=== PATIENT | female | born 1995 | race American Indian/Alaskan Native ===

== ENCOUNTER 2017-08-14 09:14 | Emergency (ER) | payer SELFPAY ==
[2017-08-14 10:34] LABS: Hematocrit 36.6 % (30.3-42.9); Hemoglobin 11.9 gm/dl (10.1-14.3); Mean Corpuscular HGB Conc 32 % (30-34); Mean Corpuscular Hemoglobin 28 pg (28-32); Mean Corpuscular Volume 86 fl (79-97); Platelet Count 234 K/mm3 (140-440); Red Blood Count 4.28 M/mm3 (3.65-5.03); Red Cell Distribution Width 16.8 % (13.2-15.2)
[2017-08-14 10:48] LABS: Alanine Aminotransferase 8 units/L (7-56); Albumin 4.3 g/dL (3.9-5); BUN/Creatinine Ratio 13; Blood Urea Nitrogen 9 mg/dL (7-17); Hemolysis Index 2
[2017-08-14] MEDS ORDERED: MORPHINE IV ONE (11:11)
[2017-08-14] MEDS ORDERED: TORADOL IV ONE (11:11)
[2017-08-14] MEDS ORDERED: ZOFRAN IV ONE (11:11)
[2017-08-14] MEDS ORDERED: NACL 0.9% 1000 ML 1,000 ML IV ONE (11:11)
--- NOTE | 2017-08-14 11:13 | Emergency Department Report ---
ED Abdominal Pain HPI - General Chief Complaint: Nausea/Vomiting/Diarrhea Stated Complaint: NAUSEA/VOMITING Time Seen by Provider: 08/14/17 11:03 Source: patient, family Mode of arrival: Ambulatory Limitations: No Limitations - History of Present Illness Initial Comments: Patient brought in by her parents and patient reports she's been having nausea vomiting diarrhea with abdominal pain to her pelvic area pointing to the right side of her abdomen. She said her pain is 10 out of 10 and crampy. Patient started her period today and this started today. Patient is crunched up and appears to be in pain she is crying. She says she's had multiple episodes of diarrhea and vomiting today. She reports feeling chills but does know she has fever. Mom reports the patient doesn't have any medical problem but she is had this in the past where when she starts her menses she gets severe cramping.. Patient denies any back pain, urinary burning, frequency but report urgency. Denies any blood in her urine. She said she ate chicken before she went to bed last night and when she woke up this morning she started feeling sick and abdominal cramping. Noted. Started when she woke up this morning. Pain is constant. No medication taken for nausea vomiting, diarrhea or for pain. Denies any drug use including marijuana MD Complaint: abdominal pain, other (NVD) -: This morning Location: suprapubic (right) Radiation: none Migration to: no migration Severity: severe Severity scale (0 -10): 10 Quality: cramping Consistency: constant Improves With: nothing Worsens With: movement, other (palpation) Context: other (unknown but she started her period this morning.) Associated Symptoms: nausea, vomiting, diarrhea, other (urine urgency). denies : fever, chills, constipation, dysuria, hematemesis, hematochezia, melena, hematuria, anorexia, syncope Treatments Prior to Arrival: other (none) - Related Data LMP Date: 08/14/17 Previous Rx's Medication Instructions Recorded Last Taken Type Cephalexin [Keflex] 500 mg PO Q12HR 7 Days #14 cap 08/14/17 Unknown Rx Naproxen 500 mg PO Q8H PRN #12 tablet 08/14/17 Unknown Rx Ondansetron [Zofran Odt] 4 mg PO Q8H PRN #12 tab.rapdis 08/14/17 Unknown Rx Allergies Allergy/AdvReac Type Severity Reaction Status Date / Time No Known Allergies Allergy Unverified 04/09/15 21:18 ED Review of Systems ROS: Stated complaint: NAUSEA/VOMITING Other details as noted in HPI Constitutional: chills. denies: fever Eyes: denies: eye pain, eye discharge, vision change ENT: denies: ear pain, throat pain, congestion Respiratory: denies: cough, shortness of breath, SOB with exertion, SOB at rest , stridor, wheezing Cardiovascular: denies: chest pain, palpitations, edema, syncope Gastrointestinal: abdominal pain, nausea, vomiting, diarrhea. denies: constipation, hematemesis, melena, hematochezia Genitourinary: urgency. denies: dysuria, frequency, hematuria, discharge, abnormal menses, dyspareunia Musculoskeletal: denies: back pain, joint swelling, arthralgia, myalgia Skin: denies: rash, lesions Neurological: denies: headache, weakness, numbness, paresthesias, confusion, abnormal gait, vertigo Psychiatric: depression ED Past Medical Hx - Past Medical History Previous Medical History?: Yes Additional medical history: scoliosis. Dysmenorrhea - Surgical History Past Surgical History?: No - Family History Family history: hypertension - Social History Smoking Status: Never Smoker Substance Use Type: None Other Social History: Single and lives with mom - Medications Home Medications: Home Medications Medication Instructions Recorded Confirmed Last Taken Type Cephalexin [Keflex] 500 mg PO Q12HR 7 Days #14 cap 08/14/17 Unknown Rx Naproxen 500 mg PO Q8H PRN #12 tablet 08/14/17 Unknown Rx Ondansetron [Zofran Odt] 4 mg PO Q8H PRN #12 tab.rapdis 08/14/17 Unknown Rx ED Physical Exam - General Limitations: No Limitations General appearance: alert, in no apparent distress - Head Head exam: Present: atraumatic, normocephalic, normal inspection - Eye Eye exam: Present: normal appearance, PERRL, EOMI. Absent: periorbital swelling , periorbital tenderness Pupils: Present: normal accommodation - ENT ENT exam: Present: normal exam, normal orophraynx, mucous membranes moist, TM's normal bilaterally, normal external ear exam - Neck Neck exam: Present: normal inspection, full ROM, other (no C-spine tenderness). Absent: meningismus, lymphadenopathy - Respiratory Respiratory exam: Present: normal lung sounds bilaterally. Absent: respiratory distress, chest wall tenderness - Cardiovascular Cardiovascular Exam: Present: regular rate, normal rhythm, normal heart sounds, gallop. Absent: systolic murmur, diastolic murmur - GI/Abdominal GI/Abdominal exam: Present: soft, tenderness (right pelvic), normal bowel sounds. Absent: distended, guarding, rebound, rigid, organomegaly, mass, bruit , pulsatile mass, hernia - Extremities Exam Extremities exam: Present: normal inspection, full ROM, normal capillary refill , other (no clubbing, cyanosis or edema. Positive pulses all extremities and no neurovascular compromise). Absent: tenderness, pedal edema, joint swelling, calf tenderness - Back Exam Back exam: Present: normal inspection, full ROM, other (ambulates without any difficulties). Absent: tenderness, CVA tenderness (R), CVA tenderness (L), muscle spasm, paraspinal tenderness, vertebral tenderness, rash noted - Neurological Exam Neurological exam: Present: alert, oriented X3 - Psychiatric Psychiatric exam: Present: normal affect, normal mood - Skin Skin exam: Present: warm, dry, intact, normal color. Absent: rash ED Course Vital Signs 08/14/17 08/14/17 08/14/17 09:27 11:35 11:36 Temperature 99.3 F Pulse Rate 84 Respiratory 20 18 18 Rate Blood Pressure 117/74 Blood Pressure [Right] O2 Sat by Pulse 100 Oximetry 08/14/17 08/14/17 12:06 14:44 Temperature 99.4 F Pulse Rate 82 Respiratory 18 18 Rate Blood Pressure Blood Pressure 107/63 [Right] O2 Sat by Pulse 99 Oximetry - Reevaluation(s) Reevaluation #1: 08/14/17 12:55 Patient given Toradol 30 mg IV, morphine 2 mg IV, Zofran 4 mg IV and 1 L of normal saline. She is a UTI and has just started her menses today. Pain is better. Abdomen is nontender to palpate. Awaiting CT scan results. Reevaluation #2: 08/14/17 14:01 Patient pain is better and she says she is feeling better. No episode of diarrhea or vomiting in the emergency room. Sheet tolerating by mouth liquids well. Right pelvic area still with tenderness and CT scan of the abdomen and pelvis shows no abnormal finding except for adnexal cyst. Urinalysis positive UTI, positive ketones, chemistry with mild decrease in sodium. CBC stable. Negative . She is still mild tenderness to right pelvic area but she reports that it was worse when she first came in. ED Medical Decision Making - Lab Data Result diagrams: 08/14/17 09:53 08/14/17 09:53 Lab Results 08/14/17 08/14/17 08/14/17 Range/Units 09:52 09:53 09:53 WBC 9.1 (4.5-11.0) K/mm3 RBC 4.28 (3.65-5.03) M/mm3 Hgb 11.9 (10.1-14.3) gm/dl Hct 36.6 (30.3-42.9) % MCV 86 (79-97) fl MCH 28 (28-32) pg MCHC 32 (30-34) % RDW 16.8 H (13.2-15.2) % Plt Count 234 (140-440) K/mm3 Add Manual Diff Complete Total Counted 100 Seg Neutrophils % Kiss Setter Hand Seg Neuts % (Manual) 95.0 H (40.0-70.0) % Band Neutrophils % 0 % Lymphocytes % (Manual) 4.0 L (13.4-35.0) % Reactive Lymphs % (Man) 0 % Monocytes % (Manual) 1.0 (0.0-7.3) % Eosinophils % (Manual) 0 (0.0-4.3) % Basophils % (Manual) 0 (0.0-1.8) % Metamyelocytes % 0 % Myelocytes % 0 % Promyelocytes % 0 % Blast Cells % 0 % Nucleated RBC % Not Reportable Seg Neutrophils # Man 8.6 H (1.8-7.7) K/mm3 Band Neutrophils # 0.0 K/mm3 Lymphocytes # (Manual) 0.4 L (1.2-5.4) K/mm3 Abs React Lymphs (Man) 0.0 K/mm3 Monocytes # (Manual) 0.1 (0.0-0.8) K/mm3 Eosinophils # (Manual) 0.0 (0.0-0.4) K/mm3 Basophils # (Manual) 0.0 (0.0-0.1) K/mm3 Metamyelocytes # 0.0 K/mm3 Myelocytes # 0.0 K/mm3 Promyelocytes # 0.0 K/mm3 Blast Cells # 0.0 K/mm3 WBC Morphology Not Reportable Hypersegmented Neuts Not Reportable Hyposegmented Neuts Not Reportable Hypogranular Neuts Not Reportable Smudge Cells Not Reportable Toxic Granulation Not Reportable Toxic Vacuolation Not Reportable Dohle Bodies Not Reportable Pelger-Huet Anomaly Not Reportable Ariana Rods Not Reportable Platelet Estimate Consistent w auto Clumped Platelets Not Reportable Plt Clumps, EDTA Not Reportable Large Platelets Not Reportable Giant Platelets Not Reportable Platelet Satelliting Not Reportable Plt Morphology Comment Not Reportable RBC Morphology Normal Dimorphic RBCs Not Reportable Polychromasia Not Reportable Hypochromasia Not Reportable Poikilocytosis Not Reportable Anisocytosis Not Reportable Microcytosis Not Reportable Macrocytosis Not Reportable Spherocytes Not Reportable Pappenheimer Bodies Not Reportable Sickle Cells Not Reportable Target Cells Not Reportable Tear Drop Cells Not Reportable Ovalocytes Not Reportable Helmet Cells Not Reportable [place] Bodies Not Reportable [place] Rings Not Reportable Daniel Cells Not Reportable Bite Cells Not Reportable Crenated Cell Not Reportable Elliptocytes Not Reportable Acanthocytes (Spur) Not Reportable Rouleaux Not Reportable Hemoglobin C Crystals Not Reportable Schistocytes Not Reportable Malaria parasites Not Reportable Ervin Bodies Not Reportable Hem Pathologist Commnt No Sodium 137 (137-145) mmol/L Potassium 3.6 (3.6-5.0) mmol/L Chloride 105.4 (98-107) mmol/L Carbon Dioxide 21 L (22-30) mmol/L Anion Gap 14 mmol/L BUN 9 (7-17) mg/dL Creatinine 0.7 (0.7-1.2) mg/dL Estimated GFR > 60 ml/min BUN/Creatinine Ratio 13 % Glucose 131 H (65-100) mg/dL Calcium 9.0 (8.4-10.2) mg/dL Total Bilirubin 0.30 (0.1-1.2) mg/dL AST 17 (5-40) units/L ALT 8 (7-56) units/L Alkaline Phosphatase 47 (35-129) units/L Total Protein 7.5 (6.3-8.2) g/dL Albumin 4.3 (3.9-5) g/dL Albumin/Globulin Ratio 1.3 % Lipase 22 (13-60) units/L HCG, Qual (Negative) Urine Color (Yellow) Urine Turbidity (Clear) Urine pH (5.0-7.0) Ur Specific [place] (1.003-1.030) Urine Protein (Negative) mg/dL Urine Glucose (UA) (Negative) mg/dL Urine Ketones (Negative) mg/dL Urine Blood (Negative) Urine Nitrite (Negative) Urine Bilirubin (Negative) Urine Urobilinogen (<2.0) mg/dL Ur Leukocyte Esterase (Negative) Urine WBC (Auto) (0.0-6.0) /HPF Urine RBC (Auto) (0.0-6.0) /HPF U Epithel Cells (Auto) (0-13.0) /HPF Urine Mucus /HPF 08/14/17 08/14/17 Range/Units 11:26 11:41 WBC (4.5-11.0) K/mm3 RBC (3.65-5.03) M/mm3 Hgb (10.1-14.3) gm/dl Hct (30.3-42.9) % MCV (79-97) fl MCH (28-32) pg MCHC (30-34) % RDW (13.2-15.2) % Plt Count (140-440) K/mm3 Add Manual Diff Total Counted Seg Neutrophils % Seg Neuts % (Manual) (40.0-70.0) % Band Neutrophils % % Lymphocytes % (Manual) (13.4-35.0) % Reactive Lymphs % (Man) % Monocytes % (Manual) (0.0-7.3) % Eosinophils % (Manual) (0.0-4.3) % Basophils % (Manual) (0.0-1.8) % Metamyelocytes % % Myelocytes % % Promyelocytes % % Blast Cells % % Nucleated RBC % Seg Neutrophils # Man (1.8-7.7) K/mm3 Band Neutrophils # K/mm3 Lymphocytes # (Manual) (1.2-5.4) K/mm3 Abs React Lymphs (Man) K/mm3 Monocytes # (Manual) (0.0-0.8) K/mm3 Eosinophils # (Manual) (0.0-0.4) K/mm3 Basophils # (Manual) (0.0-0.1) K/mm3 Metamyelocytes # K/mm3 Myelocytes # K/mm3 Promyelocytes # K/mm3 Blast Cells # K/mm3 WBC Morphology Hypersegmented Neuts Hyposegmented Neuts Hypogranular Neuts Smudge Cells Toxic Granulation Toxic Vacuolation Dohle Bodies Pelger-Huet Anomaly Ariana Rods Platelet Estimate Clumped Platelets Plt Clumps, EDTA Large Platelets Giant Platelets Platelet Satelliting Plt Morphology Comment RBC Morphology Dimorphic RBCs Polychromasia Hypochromasia Poikilocytosis Anisocytosis Microcytosis Macrocytosis Spherocytes Pappenheimer Bodies Sickle Cells Target Cells Tear Drop Cells Ovalocytes Helmet Cells [place] Bodies [place] Rings [place] Cells Bite Cells Crenated Cell Elliptocytes Acanthocytes (Spur) Rouleaux Hemoglobin C Crystals Schistocytes Malaria parasites Ervin Bodies Hem Pathologist Commnt Sodium (137-145) mmol/L Potassium (3.6-5.0) mmol/L Chloride (98-107) mmol/L Carbon Dioxide (22-30) mmol/L Anion Gap mmol/L BUN (7-17) mg/dL Creatinine (0.7-1.2) mg/dL Estimated GFR ml/min BUN/Creatinine Ratio % Glucose (65-100) mg/dL Calcium (8.4-10.2) mg/dL Total Bilirubin (0.1-1.2) mg/dL AST (5-40) units/L ALT (7-56) units/L Alkaline Phosphatase (35-129) units/L Total Protein (6.3-8.2) g/dL Albumin (3.9-5) g/dL Albumin/Globulin Ratio % Lipase (13-60) units/L HCG, Qual Negative (Negative) Urine Color Yellow (Yellow) Urine Turbidity Clear (Clear) Urine pH 9.0 H (5.0-7.0) Ur Specific [place] 1.025 (1.003-1.030) Urine Protein 100 mg/dl (Negative) mg/dL Urine Glucose (UA) Neg (Negative) mg/dL Urine Ketones Tr (Negative) mg/dL Urine Blood Mod (Negative) Urine Nitrite Neg (Negative) Urine Bilirubin Neg (Negative) Urine Urobilinogen < 2.0 (<2.0) mg/dL Ur Leukocyte Esterase Tr (Negative) Urine WBC (Auto) 12.0 H (0.0-6.0) /HPF Urine RBC (Auto) > 182.0 (0.0-6.0) /HPF U Epithel Cells (Auto) 3.0 (0-13.0) /HPF Urine Mucus 3+ /HPF Urine culture sent - Radiology Data Radiology results: report reviewed Ultrasound of the abdomen and pelvis with IV contrast normal except patient with right ovarian cyst. Please refer to radiology section for details on reported. Unable to get detail reports at present due to radiology system dysfunction. Radiologist called to inform that CT scan of the abdomen and pelvis normal except patient with right ovarian cyst and she is tender to palpate at right adnexa. Doctor Cosmo took report - Medical Decision Making ED Course DX: 1:Abdominal pain- resolved. Morphine 2mg iv, toradol 30 mg IV. will send home on naproxen. CT scan of abdomen and Pelvis with IV contrast normal except rt ovarian cyst. See radiology report for details CBC, CMP, Lipase stable. Neg . UA positive ketones and infection. See lab section for details 2: Rt ovarian Cyst- referred to [facility] for further eval 3: Dysmenorrhea on uti, - resolved.Referred to [facility] for further eval 4: UTI- Rocephin 1 gm im in ED and Keflex 500 mg po x 7 days. UA wit uti, CX sent 5:Mild dehydration- NS x 1 liter. PO challenge and tolerated 2 cups of juices without NVD 6: Nausea, Vomiting and Diarrhea-resolved. Zofran 4 mg iv in ed No diarrhea in ED. Will send home on Zofran Prescription for Zofran, Naproxen and Keflex, educated on meds referral to OBGYN F/U with PCP Educated on diagnosis CT scan results and labs explained to patient patient voiced understanding of discharge diagnosis, treatment plan, follow up. reports feeling better. Discharge from ed with family in stable condition - Differential Diagnosis appendicitis, ovarian cyst, colitis, gastroenteritis, UTI, Critical care attestation.: If time is entered above; I have spent that time in minutes in the direct care of this critically ill patient, excluding procedure time. ED Disposition Clinical Impression: Dysmenorrhea, Right ovarian cyst, Nausea vomiting and diarrhea, Acute cystitis with hematuria, Mild dehydration Abdominal pain Qualifiers: Abdominal location: right lower quadrant Qualified Code(s): R10.31 - Right lower quadrant pain Disposition: DC-01 TO HOME OR SELFCARE Is pt being admited?: No Does the pt Need Aspirin: No Condition: Stable Instructions: Dysmenorrhea (ED), Ovarian Cyst (ED), Dehydration (ED), Urinary Tract Infection in Women (ED), Acute Nausea and Vomiting (ED), Acute Diarrhea ( ED), Abdominal Pain (ED), Nutrition Tips for Relief of Diarrhea (ED) Additional Instructions: Please follow up with [facility] as instructed. See referral and call today for appointment Please follow up with primary care physician as discussed Take Zofran for nausea and vomiting Take naproxen for menstrual pain. increase fluid intake Prescriptions: Cephalexin [Keflex] 500 mg PO Q12HR 7 Days #14 cap Naproxen 500 mg PO Q8H PRN #12 tablet PRN Reason: abdominal cramping Ondansetron [Zofran Odt] 4 mg PO Q8H PRN #12 tab.rapdis PRN Reason: Nausea And Vomiting Referrals: PRIMARY CAREMD [Primary Care Provider] - 08/15/17 [facility] [Provider [facility]] - 08/19/17 Forms: Accompanied Note, Work/School Release Form(ED)
[2017-08-14] MEDS ORDERED: MORPHINE ONE ×2 (11:29)
[2017-08-14] MEDS ORDERED: NACL 0.9% 1000 ML 1,000 ML ONE ×2 (11:29)
[2017-08-14] MEDS ORDERED: TORADOL ONE ×2 (11:29)
[2017-08-14] MEDS ORDERED: ZOFRAN ONE ×2 (11:29)
[2017-08-14 11:53] LABS: Basophils % (Manual) 0 % (0.0-1.8); Eosinophils % (Manual) 0 % (0.0-4.3); RBC Morphology Normal; Total Cells Counted 100
[2017-08-14 11:54] LABS: Platelet Estimate Consistent w Auto
[2017-08-14 12:32] LABS: Bilirubin,Urine NEG (Negative); Blood,Urine MOD (Negative); Color,Urine Yellow (Yellow); Mucus,Urine 3+ /HPF; Urobilinogen,Urine < 2.0 mg/dL (<2.0)
[2017-08-14 12:34] LABS: RBC,Urine > 182.0 /HPF (0.0-6.0)
[2017-08-14] MEDS ORDERED: XYLOCAINE 1% MPF 5 mL INFILTRATI ONE (13:45)
[2017-08-14] MEDS ORDERED: ROCEPHIN IM STA (13:45)
[2017-08-14] MEDS ORDERED: ROCEPHIN IM ONE ×2 (14:27)
[2017-08-14] MEDS ORDERED: XYLOCAINE 1% MPF 5 mL ONE ×2 (14:28)
[2017-08-14 14:45] VITALS: BP 107/63
== END 2017-08-14 15:07 | disposition home or self-care (01) ==
LOC: ED 09:14
DX: N83.201 Unspecified ovarian cyst, right side (principal); N30.01 Acute cystitis with hematuria; E86.0 Dehydration
CPT/HCPCS: 36415; 74177; 80053; 81001; 83690; 84703; 85007; 85025; 87086; 96361; 96372; 96374; 96375; 99283; J0696; J1885; J2270; J2405; J7030; Q9967

== ENCOUNTER 2018-05-07 23:32 | Emergency (ER) | payer SELFPAY ==
[2018-05-07 23:59] VITALS: BP 117/78
[2018-05-08] MEDS ORDERED: IBUPROFEN PO ONE (01:10)
[2018-05-08] MEDS ORDERED: LIDOCAINE VISCOUS 2% PO ONE (01:10)
[2018-05-08] MEDS ORDERED: BICILLIN L-A IM ONE (01:10)
--- NOTE | 2018-05-08 01:18 | Emergency Department Report ---
ED ENT HPI - General Chief complaint: Sore Throat Stated complaint: URI SX Time Seen by Provider: 05/08/18 00:37 Source: patient Mode of arrival: Ambulatory Limitations: No Limitations - History of Present Illness Initial comments: This is a 22-year-old female nontoxic, well nourished in appearance, no acute signs of distress presents to the ED with c/o of sore throat. Patient describes sore throat as swallowing razer blades. Patient denies any fever, chills, headache, stiff neck, nausea, vomiting, chest pain, shortness of breath, numbness or tingling. Patient denies any drooling or hoarseness. Patient denies any allergies or significant past medical history. MD complaint: sore throat -: days(s) (4) Location: throat Severity: mild Severity scale (0 -10): 8 Quality: aching Consistency: constant Improves with: none Worsens with: swallowing Associated Symptoms: pain with swallowing, sore throat. denies: fever, cough, gum swelling, toothache, tinnitus, hearing loss, discharge from ear, rhinorrhea - Related Data Previous Rx's Medication Instructions Recorded Last Taken Type Naproxen 500 mg PO Q8H PRN #12 tablet 08/14/17 Unknown Rx Ondansetron [Zofran Odt] 4 mg PO Q8H PRN #12 tab.rapdis 08/14/17 Unknown Rx cephALEXin [Keflex] 500 mg PO Q12HR 7 Days #14 cap 08/14/17 Unknown Rx Ibuprofen [Motrin] 600 mg PO Q8H PRN #20 tablet 05/08/18 Unknown Rx Nystas/Diphen/Xyl Visc/Mylanta 15 ml MM Q6H PRN 5 Days ml 05/08/18 Unknown Rx [Magic Mouthwash] Allergies Allergy/AdvReac Type Severity Reaction Status Date / Time No Known Allergies Allergy Unverified 04/09/15 21:18 ED Dental HPI - General Chief complaint: Sore Throat Stated complaint: URI SX Time Seen by Provider: 05/08/18 00:37 Source: patient Mode of arrival: Ambulatory Limitations: No Limitations - Related Data Previous Rx's Medication Instructions Recorded Last Taken Type Naproxen 500 mg PO Q8H PRN #12 tablet 08/14/17 Unknown Rx Ondansetron [Zofran Odt] 4 mg PO Q8H PRN #12 tab.rapdis 08/14/17 Unknown Rx cephALEXin [Keflex] 500 mg PO Q12HR 7 Days #14 cap 08/14/17 Unknown Rx Ibuprofen [Motrin] 600 mg PO Q8H PRN #20 tablet 05/08/18 Unknown Rx Nystas/Diphen/Xyl Visc/Mylanta 15 ml MM Q6H PRN 5 Days ml 05/08/18 Unknown Rx [Magic Mouthwash] Allergies Allergy/AdvReac Type Severity Reaction Status Date / Time No Known Allergies Allergy Unverified 04/09/15 21:18 ED Review of Systems ROS: Stated complaint: URI SX Other details as noted in HPI Constitutional: denies: chills, fever Eyes: denies: eye pain, eye discharge, vision change ENT: denies: ear pain, throat pain Respiratory: denies: cough, shortness of breath, wheezing Cardiovascular: denies: chest pain, palpitations Endocrine: no symptoms reported Gastrointestinal: denies: abdominal pain, nausea, diarrhea Genitourinary: denies: urgency, dysuria, discharge Musculoskeletal: denies: back pain, joint swelling, arthralgia Skin: denies: rash, lesions Neurological: denies: headache, weakness, paresthesias Psychiatric: denies: anxiety, depression Hematological/Lymphatic: denies: easy bleeding, easy bruising ED Past Medical Hx - Past Medical History Previous Medical History?: Yes Additional medical history: scoliosis. Dysmenorrhea - Surgical History Past Surgical History?: No - Social History Smoking Status: Former Smoker Substance Use Type: Marijuana - Medications Home Medications: Home Medications Medication Instructions Recorded Confirmed Last Taken Type Naproxen 500 mg PO Q8H PRN #12 tablet 08/14/17 Unknown Rx Ondansetron [Zofran Odt] 4 mg PO Q8H PRN #12 tab.rapdis 08/14/17 Unknown Rx cephALEXin [Keflex] 500 mg PO Q12HR 7 Days #14 cap 08/14/17 Unknown Rx Ibuprofen [Motrin] 600 mg PO Q8H PRN #20 tablet 05/08/18 Unknown Rx Nystas/Diphen/Xyl Visc/Mylanta 15 ml MM Q6H PRN 5 Days ml 05/08/18 Unknown Rx [Magic Mouthwash] ED Physical Exam - General Limitations: No Limitations General appearance: alert, in no apparent distress - Head Head exam: Present: atraumatic, normocephalic - Eye Eye exam: Present: normal appearance - Expanded ENT Exam Expanded Ear exam: Present: normal external inspection Mouth exam: Present: normal external inspection. Absent: drooling, trismus, muffled voice Throat exam: Positive: tonsillar erythema, tonsillomegaly (2+), tonsillar exudate, other (uvula midline.). Negative: R peritonsillar mass, L peritonsillar mass - Neck Neck exam: Present: normal inspection, full ROM, lymphadenopathy (bilateral tonsillar). Absent: tenderness, meningismus - Neurological Exam Neurological exam: Present: alert, oriented X3 - Psychiatric Psychiatric exam: Present: normal affect, normal mood - Skin Skin exam: Present: warm, dry, intact, normal color. Absent: rash ED Course Vital Signs 05/07/18 23:58 Temperature 98.9 F Pulse Rate 102 H Respiratory 16 Rate Blood Pressure 117/78 O2 Sat by Pulse 97 Oximetry - Reevaluation(s) Reevaluation #1: 05/08/18 01:16 Patient is speaking in full sentences with no signs of distress noted. ED Medical Decision Making - Medical Decision Making This is a 22-year-old female that presents with tonsillitis. Patient is stable was examined by me. There is no drooling. No tonsillar abscess noted. Uvula is midline. Patient received Bicillin IM in the ED. Vital signs are stable. Patient is not febrile and normal heart rate. Patient was instructed to Follow-up with a primary care doctor in 3-5 days or if symptoms worsen and continue return to emergency room as soon as possible. At time of discharge, the patient does not seem toxic or ill in appearance. No acute signs of distress noted. Patient agrees to discharge treatment plan of care. No further questions noted by the patient. Critical care attestation.: If time is entered above; I have spent that time in minutes in the direct care of this critically ill patient, excluding procedure time. ED Disposition Clinical Impression: Tonsillitis with exudate Pharyngitis Qualifiers: Pharyngitis/tonsillitis etiology: unspecified etiology Qualified Code(s): J02.9 - Acute pharyngitis, unspecified Disposition: TO HOME OR SELFCARE Is pt being admited?: No Does the pt Need Aspirin: No Condition: Stable Instructions: Tonsillitis (ED), Pharyngitis (ED) Additional Instructions: Follow-up with a primary care doctor in 3-5 days or if symptoms worsen and continue return to emergency room as soon as possible. Prescriptions: Ibuprofen [Motrin] 600 mg PO Q8H PRN #20 tablet PRN Reason: Pain Nystas/Diphen/Xyl Visc/Mylanta [Magic Mouthwash] 15 ml MM Q6H PRN 5 Days ml PRN Reason: Sore Throat Referrals: [facility] MD ABBE [Primary Care Provider] - 3-5 Days PRIMARY CAR[facility] [Referring] - 3-5 Days EVERARDO MILLER MD [Staff Physician] - 3-5 Days [facility] [Outside] - 3-5 Days [facility] [Outside] - 3-5 Days Forms: Work/School Release Form(ED)
== END 2018-05-08 02:30 | disposition home or self-care (01) ==
LOC: ED 23:32
DX: J03.90 Acute tonsillitis, unspecified (principal); J02.9 Acute pharyngitis, unspecified; F12.10 Cannabis abuse, uncomplicated; Z87.891 Personal history of nicotine dependence
CPT/HCPCS: 87430; 96372; 99283; J0561

== ENCOUNTER 2018-10-12 13:04 | Emergency (ER) | payer SELFPAY ==
--- NOTE | 2018-10-12 13:15 | Emergency Department Report ---
Blank Doc - Documentation Documentation: This is a 22-year-old female that presents with abdominal pain. This initial assessment/diagnostic orders/clinical plan/treatment(s) is/are subject to change based on patient's health status, clinical progression and re- assessment by fellow clinical providers in the ED. Further treatment and workup at subsequent clinical providers discretion. Patient/guardians urged not to elope from the ED as their condition may be serious if not clinically assessed and managed. Initial orders include: 1- Patient sent to [facility] for further evaluation and treatment 2- labs 3- UA
[2018-10-12] MEDS ORDERED: MORPHINE IV ONE ×2 (13:16→14:35)
[2018-10-12] MEDS ORDERED: NACL 0.9% 1000 ML 1,000 ML IV ONE (13:16)
[2018-10-12] MEDS ORDERED: ZOFRAN IV ONE ×2 (13:16→14:35)
[2018-10-12 13:52] LABS: Basophils % (Auto) 0.3 % (0.0-1.8); Eosinophils % (Auto) 0.1 % (0.0-4.3); Hematocrit 37.5 % (30.3-42.9); Hemoglobin 12.4 gm/dl (10.1-14.3); Lymphocytes # (Auto) 0.7 K/mm3 (1.2-5.4); Mean Corpuscular HGB Conc 33 % (30-34); Mean Corpuscular Volume 88 fl (79-97); Monocytes # (Auto) 0.4 K/mm3 (0.0-0.8); Monocytes % (Auto) 3.9 % (0.0-7.3); Platelet Count 214 K/mm3 (140-440); Red Blood Count 4.26 M/mm3 (3.65-5.03); Red Cell Distribution Width 15.3 % (13.2-15.2)
[2018-10-12 14:16] LABS: Alanine Aminotransferase 8 units/L (7-56); Albumin 4.4 g/dL (3.9-5); BUN/Creatinine Ratio 13; Blood Urea Nitrogen 9 mg/dL (7-17); Hemolysis Index 10
--- NOTE | 2018-10-12 14:58 | Emergency Department Report ---
<AZIZA HOPKINS - Last Filed: 10/12/18 14:57> ED General Adult HPI - General Chief complaint: Abdominal Pain Stated complaint: STOMACH PAIN SEVERE Time Seen by Provider: 10/12/18 13:16 Source: patient, family Mode of arrival: Wheelchair Limitations: No Limitations - History of Present Illness Initial comments: The patient presents to the emergency department with a chief complaint of lower abdominal pain that started this morning. Patient also complains of nausea, vomiting, diarrhea. Patient is unaware of any sick contacts. -: Sudden Location: abdomen Radiation: non-radiation Severity scale (0 -10): 8 Quality: sharp Consistency: constant Improves with: none Worsens with: none Associated Symptoms: nausea/vomiting Treatments Prior to Arrival: none - Related Data Previous Rx's Medication Instructions Recorded Last Taken Type Naproxen 500 mg PO Q8H PRN #12 tablet 08/14/17 Unknown Rx Ondansetron [Zofran Odt] 4 mg PO Q8H PRN #12 tab.rapdis 08/14/17 Unknown Rx cephALEXin [Keflex] 500 mg PO Q12HR 7 Days #14 cap 08/14/17 Unknown Rx Ibuprofen [Motrin] 600 mg PO Q8H PRN #20 tablet 05/08/18 Unknown Rx Nystas/Diphen/Xyl Visc/Mylanta 15 ml MM Q6H PRN 5 Days ml 05/08/18 Unknown Rx [Magic Mouthwash] HYDROcodone/APAP 5-325 [[place] 1 each PO Q6HR PRN #12 tablet 10/12/18 Unknown Rx 5/325] Ondansetron [Zofran Odt] 4 mg PO Q4HR PRN #20 tab.rapdis 10/12/18 Unknown Rx Allergies Allergy/AdvReac Type Severity Reaction Status Date / Time No Known Allergies Allergy Unverified 04/09/15 21:18 ED Review of Systems Comment: All other systems reviewed and negative Constitutional: denies: chills, fever Eyes: denies: eye pain, eye discharge, vision change ENT: denies: ear pain, throat pain Respiratory: denies: cough, shortness of breath, wheezing Cardiovascular: denies: chest pain, palpitations Endocrine: no symptoms reported Gastrointestinal: abdominal pain. denies: nausea, diarrhea Genitourinary: denies: urgency, dysuria, discharge Musculoskeletal: denies: back pain, joint swelling, arthralgia Skin: denies: rash, lesions Neurological: denies: headache, weakness, paresthesias Psychiatric: denies: anxiety, depression Hematological/Lymphatic: denies: easy bleeding, easy bruising ED Past Medical Hx - Past Medical History Additional medical history: scoliosis. Dysmenorrhea - Surgical History Past Surgical History?: No - Social History Smoking Status: Former Smoker Substance Use Type: Marijuana - Medications Home Medications: Home Medications Medication Instructions Recorded Confirmed Last Taken Type Naproxen 500 mg PO Q8H PRN #12 tablet 08/14/17 Unknown Rx Ondansetron [Zofran Odt] 4 mg PO Q8H PRN #12 tab.rapdis 08/14/17 Unknown Rx cephALEXin [Keflex] 500 mg PO Q12HR 7 Days #14 cap 08/14/17 Unknown Rx Ibuprofen [Motrin] 600 mg PO Q8H PRN #20 tablet 05/08/18 Unknown Rx Nystas/Diphen/Xyl Visc/Mylanta 15 ml MM Q6H PRN 5 Days ml 05/08/18 Unknown Rx [Magic Mouthwash] HYDROcodone/APAP 5-325 [[place] 1 each PO Q6HR PRN #12 tablet 10/12/18 Unknown Rx 5/325] Ondansetron [Zofran Odt] 4 mg PO Q4HR PRN #20 tab.rapdis 10/12/18 Unknown Rx ED Physical Exam - General Limitations: No Limitations General appearance: alert, in no apparent distress - Head Head exam: Present: atraumatic, normocephalic - Eye Eye exam: Present: normal appearance - ENT ENT exam: Present: mucous membranes moist - Neck Neck exam: Present: normal inspection - Respiratory Respiratory exam: Present: normal lung sounds bilaterally. Absent: respiratory distress - Cardiovascular Cardiovascular Exam: Present: regular rate, normal rhythm. Absent: systolic murmur, diastolic murmur, rubs, gallop - GI/Abdominal GI/Abdominal exam: Present: soft, tenderness (tenderness to palpation of the right lower quadrant), normal bowel sounds. Absent: distended - Extremities Exam Extremities exam: Present: normal inspection - Back Exam Back exam: Present: normal inspection - Neurological Exam Neurological exam: Present: alert, oriented X3 - Psychiatric Psychiatric exam: Present: normal affect, normal mood - Skin Skin exam: Present: warm, dry, intact, normal color. Absent: rash ED Medical Decision Making - Lab Data Result diagrams: 10/12/18 13:36 10/12/18 13:36 ED Disposition Clinical Impression: Ovarian cyst, Abdominal pain Disposition: DC-01 TO HOME OR SELFCARE Condition: Stable Instructions: Abdominal Pain (ED) Additional Instructions: bland diet activity as tolerated follow up with MDs below meds as ordered hydrated well with water Prescriptions: HYDROcodone/APAP 5-325 [[place] 5/325] 1 each PO Q6HR PRN #12 tablet PRN Reason: Pain Ondansetron [Zofran Odt] 4 mg PO Q4HR PRN #20 tab.rapdis PRN Reason: Nausea Referrals: PRIMARY CARE, [Referring] - 3-5 Days RADHA TREVIÑO MD [Staff Physician] - 3-5 Days KELLIE CARRERO MD [Staff Physician] - 3-5 Days WAYLON PICKERING MD [Staff Physician] - 3-5 Days <TOBIAS-ANGEL MOREJON A - Last Filed: 10/12/18 19:18> ED Review of Systems ROS: Stated complaint: STOMACH PAIN SEVERE Other details as noted in HPI ED Past Medical Hx - Past Medical History Previous Medical History?: Yes - Surgical History Past Surgical History?: No - Family History Family history: no significant ED Medical Decision Making - Lab Data Result diagrams: 10/12/18 13:36 10/12/18 13:36 - Radiology Data Radiology results: report reviewed, image reviewed - Medical Decision Making Labs 10/12/18 10/12/18 10/12/18 13:36 13:36 13:36 WBC 9.2 RBC 4.26 Hgb 12.4 Hct 37.5 MCV 88 MCH 29 MCHC 33 RDW 15.3 H Plt Count 214 Lymph % (Auto) 8.0 L [place] % (Auto) 3.9 Eos % (Auto) 0.1 Baso % (Auto) 0.3 Lymph # 0.7 L [place] # 0.4 Eos # 0.0 Baso # 0.0 Seg Neutrophils % 87.7 H Seg Neutrophils # 8.0 H Sodium 141 Potassium 3.8 Chloride 107.4 H Carbon Dioxide 19 L Anion Gap 18 BUN 9 Creatinine 0.7 Estimated GFR > 60 BUN/Creatinine Ratio 13 Glucose 122 H Calcium 9.0 Total Bilirubin 0.40 AST 15 ALT 8 Alkaline Phosphatase 57 Total Protein 7.4 Albumin 4.4 Albumin/Globulin Ratio 1.5 Lipase 14 HCG, Qual Negative Urine Color Urine Turbidity Urine pH Urine Protein Urine Glucose (UA) Urine Ketones Urine Blood Urine Nitrite Urine Bilirubin Urine Urobilinogen Ur Leukocyte Esterase Urine WBC (Auto) Urine RBC (Auto) U Epithel Cells (Auto) Urine Mucus 10/12/18 16:52 WBC RBC Hgb Hct MCV MCH MCHC RDW Plt Count Lymph % (Auto) [place] % (Auto) Eos % (Auto) Baso % (Auto) Lymph # [place] # Eos # Baso # Seg Neutrophils % Seg Neutrophils # Sodium Potassium Chloride Carbon Dioxide Anion Gap BUN Creatinine Estimated GFR BUN/Creatinine Ratio Glucose Calcium Total Bilirubin AST ALT Alkaline Phosphatase Total Protein Albumin Albumin/Globulin Ratio Lipase HCG, Qual Urine Color Yellow Urine Turbidity Clear Urine pH 7.0 Urine Protein <15 mg/dl Urine Glucose (UA) Neg Urine Ketones 20 Urine Blood Mod Urine Nitrite Neg Urine Bilirubin Neg Urine Urobilinogen < 2.0 Ur Leukocyte Esterase Neg Urine WBC (Auto) < 1.0 Urine RBC (Auto) 6.0 U Epithel Cells (Auto) 1.0 Urine Mucus Few labs noted ct/us noted taking po and ambulatory on dc dc home with dc plan of care and follow up Critical care attestation.: If time is entered above; I have spent that time in minutes in the direct care of this critically ill patient, excluding procedure time. ED Disposition Is pt being admited?: No Does the pt Need Aspirin: No Time of Disposition: 18:39
--- NOTE | 2018-10-12 16:39 | Cat Scan Report ---
CT abdomen pelvis w con INDICATION / CLINICAL INFORMATION: rlq ab pain X COUPLE OF HOURS. TECHNIQUE: All CT scans at this location are performed using CT dose reduction for ALARA by means of automated e xposure control. COMPARISON: None available. FINDINGS: No acute disease is seen in either lower lung. ABDOMEN: There is a pericholecystic fluid collection with no CT findings to suggest cholelithiasis. No biliary dilatation. The liver, spleen, pancreas and kidneys are normal. No small bowel dilatation. No mesenteric or retroperitoneal lymph noted enlargement. Pelvis: Small amount of free fluid is seen dependently within the pelvis. There is a complex right ovarian cyst. Lumbar scoliosis. IMPRESSION: 1. Pericholecystic fluid collection without other identified CT abnormality of the gallbladder. 2. Complex right ovarian cyst with small free fluid collection in the pelvis. Signer Name: Sridhar Izquierdo MD Signed: 10/12/2018 4:35 PM Workstation Name: [id number]
[2018-10-12 17:11] LABS: Bilirubin,Urine NEG (Negative); Blood,Urine MOD (Negative); Color,Urine Yellow (Yellow); Mucus,Urine FEW /HPF; Protein,Urine <15 mg/dL mg/dL (Negative); Urobilinogen,Urine < 2.0 mg/dL (<2.0); WBC,Urine < 1.0 /HPF (0.0-6.0)
--- NOTE | 2018-10-12 18:10 | Ultrasound Report ---
ULTRASOUND ABDOMEN, LIMITED (RIGHT UPPER QUADRANT) INDICATION: Pericholecystic fluid on CT of the abdomen. COMPARISON: CT of the abdomen and pelvis from earlier today. FINDINGS: PANCREAS: The visualized portions are normal. LIVER: No significant abnormality. GALLBLADDER: The gallbladder wall is thickened and edematous, measuring approximately 7 mm in greates t dimension. No gallstones are identified. BILE DUCTS: No significant abnormality. Common bile duct measures 3.1 mm. FREE FLUID: None. ADDITIONAL FINDINGS: None. IMPRESSION: Diffusely edematous, thick-walled gallbladder without gallstones or other abnormality. Signer Name: Nacho Paez MD Signed: 10/12/2018 6:06 PM Workstation Name: [id number]
== END 2018-10-12 19:00 | disposition home or self-care (01) ==
LOC: ED 13:04
DX: N83.209 Unspecified ovarian cyst, unspecified side (principal); F12.10 Cannabis abuse, uncomplicated; Z87.891 Personal history of nicotine dependence; Z79.899 Other long term (current) drug therapy
CPT/HCPCS: 36415; 74177; 76705; 80053; 81001; 83690; 84703; 85025; 96361; 96374; 96375; 96376; 99284; J2270; J2405; J7030; Q9967

== ENCOUNTER 2019-01-15 13:37 | Emergency (ER) | payer SELFPAY ==
[2019-01-15 14:11] VITALS: BP 133/93
--- NOTE | 2019-01-15 14:12 | Emergency Department Report ---
Blank Doc - Documentation Documentation: 23 y/o c/o of cephalgia and coryza x 2 weeks. This initial assessment/diagnostic orders/clinical plan/treatment(s) is/are subject to change based on patient's health status, clinical progression and re- assessment by fellow clinical providers in the ED. Further treatment and workup at subsequent clinical providers discretion. Patient/guardians urged not to elope from the ED as their condition may be serious if not clinically assessed and managed. Initial orders include: cxr
[2019-01-15] MEDS ORDERED: IBUPROFEN PO ONE (16:37)
--- NOTE | 2019-01-15 16:42 | Emergency Department Report ---
ED Headache HPI - General Chief Complaint: Headache Stated Complaint: HEADACHE 2 WKS/SINUS Time Seen by Provider: 01/15/19 14:11 Source: patient - History of Present Illness Initial Comments: 23-year-old -Citizen Of [place] female presents to the emergency room for headache 2 weeks. Patient states that he started to get worse. Patient reports that she is taken Tylenol which does not help. Patient does admit to 1 day history of nasal congestion and a little cough. Patient denies any fever or chills no vomiting. Patient reports light sensitivity. Patient has no primary care provider currently takes no medications besides supplements and has no known drug allergies. Denies any weakness change in vision. Quality: moderate Recent Head Trauma: no recent headache/trauma Modifying Factors: improves with: exposure to light Associated Symptoms: nasal congestion Allergies/Adverse Reactions: Allergies No Known Allergies Allergy (Unverified 04/09/15 21:18) Home Medications: Ambulatory Orders Naproxen 500 mg PO Q8H PRN #12 tablet 08/14/17 Ondansetron [Zofran Odt] 4 mg PO Q8H PRN #12 tab.rapdis 08/14/17 cephALEXin [Keflex] 500 mg PO Q12HR 7 Days #14 cap 08/14/17 Nystas/Diphen/Xyl Visc/Mylanta [Magic Mouthwash] 15 ml MM Q6H PRN 5 Days ml 05/08/18 HYDROcodone/APAP 5-325 [[place] 5/325] 1 each PO Q6HR PRN #12 tablet 10/12/18 Ondansetron [Zofran Odt] 4 mg PO Q4HR PRN #20 tab.rapdis 10/12/18 Ibuprofen [Motrin 600 MG tab] 600 mg PO Q8H PRN #20 tablet 01/15/19 ED Review of Systems ROS: Stated complaint: HEADACHE 2 WKS/SINUS Other details as noted in HPI Comment: All other systems reviewed and negative ED Past Medical Hx - Past Medical History Previous Medical History?: Yes Additional medical history: scoliosis. Dysmenorrhea - Surgical History Past Surgical History?: No - Social History Smoking Status: Current Some Day Smoker Substance Use Type: Alcohol, Marijuana - Medications Home Medications: Home Medications Medication Instructions Recorded Confirmed Last Taken Type Naproxen 500 mg PO Q8H PRN #12 tablet 08/14/17 Unknown Rx Ondansetron [Zofran Odt] 4 mg PO Q8H PRN #12 tab.rapdis 08/14/17 Unknown Rx cephALEXin [Keflex] 500 mg PO Q12HR 7 Days #14 cap 08/14/17 Unknown Rx Nystas/Diphen/Xyl Visc/Mylanta 15 ml MM Q6H PRN 5 Days ml 05/08/18 Unknown Rx [Magic Mouthwash] HYDROcodone/APAP 5-325 [[place] 1 each PO Q6HR PRN #12 tablet 10/12/18 Unknown Rx 5/325] Ondansetron [Zofran Odt] 4 mg PO Q4HR PRN #20 tab.rapdis 10/12/18 Unknown Rx Ibuprofen [Motrin 600 MG tab] 600 mg PO Q8H PRN #20 tablet 01/15/19 Unknown Rx ED Physical Exam - General Limitations: No Limitations General appearance: alert, in no apparent distress - Head Head exam: Present: atraumatic, normocephalic - Eye Eye exam: Present: normal appearance - ENT ENT exam: Present: mucous membranes dry - Neck Neck exam: Present: normal inspection - Neurological Exam Neurological exam: Present: alert, oriented X3 - Expanded Neurological Exam Expanded Cerebellar function: Finger to Nose: Normal, Heel to Mann: Normal, Romberg: Normal Sensory exam: Upper Extremity Light Touch: Normal, Upper Extremity Pin Prick: Normal, Upper Extremity Temperature: Normal, UE 2 Point Discrimination: Normal, Lower Extremity Light Touch: Normal, Lower Extremity Pin Prick: Normal, Lower Extremity Temperature: Normal, LE 2 Point Discrimination: Normal Motor strength exam: RUE: 4, LUE: 4, RLE: 4, LLE: 4 Best Eye Response (Devin): (4) open spontaneously Best Motor Response (Devin): (6) obeys commands Best Verbal Response (Devin): (5) oriented Devin Total: 15 - Psychiatric Psychiatric exam: Present: normal affect, normal mood - Skin Skin exam: Present: warm, dry, intact, normal color. Absent: rash ED Course Vital Signs 01/15/19 01/15/19 14:09 17:43 Temperature 99.4 F 99.4 F Pulse Rate 70 70 Respiratory 20 20 Rate Blood Pressure 133/93 O2 Sat by Pulse 98 98 Oximetry ED Medical Decision Making - Medical Decision Making 23-year-old -Citizen Of [place] female presents to the emergency room for headache 2 weeks. Patient states that he started to get worse. Patient reports that she is taken Tylenol which does not help. Patient does admit to 1 day history of nasal congestion and a little cough. Patient denies any fever or chills no vomiting. Patient reports light sensitivity. Patient has no primary care provider currently takes no medications besides supplements and has no known drug allergies. Denies any weakness change in vision. Critical care attestation.: If time is entered above; I have spent that time in minutes in the direct care of this critically ill patient, excluding procedure time. ED Disposition Clinical Impression: Headache Disposition: DC-01 TO HOME OR SELFCARE Is pt being admited?: No Does the pt Need Aspirin: No Condition: Stable Instructions: Acute Headache (ED) Prescriptions: Ibuprofen [Motrin 600 MG tab] 600 mg PO Q8H PRN #20 tablet PRN Reason: Pain Referrals: PRIMARY CARE, [Primary Care Provider] - 3-5 Days [facility] [Provider Group] - 3-5 Days Forms: Work/School Release Form(ED)
--- NOTE | 2019-01-15 18:50 | XRay Report ---
CHEST 2 VIEWS 1447 INDICATION / CLINICAL INFORMATION: cough COMPARISON: None available. FINDINGS: SUPPORT DEVICES: None. HEART / MEDIASTINUM: No significant abnormality. LUNGS / PLEURA: No significant pulmonary or pleural abnormality. No pneumothorax. ADDITIONAL FINDINGS: Moderate thoracolumbar scoliosis is seen. IMPRESSION: No significant acute abnormality Signer Name: Jairo Butler MD Signed: 01/15/2019 6:45 PM Workstation Name: [id number]
== END 2019-01-15 17:44 | disposition home or self-care (01) ==
LOC: ED 13:37
DX: R51 Headache (principal); F17.200 Nicotine dependence, unspecified, uncomplicated; F12.10 Cannabis abuse, uncomplicated; Z79.899 Other long term (current) drug therapy
CPT/HCPCS: 71046; 99283

== ENCOUNTER 2019-03-27 12:49 | Emergency (ER) | payer SELFPAY ==
[2019-03-27 12:56] VITALS: BP 113/65
--- NOTE | 2019-03-27 12:56 | Event Note ---
ED Screening Note Date of service: 03/27/19 Time: 12:55 ED Screening Note: Pt complains of left ankle pain x yesterday twisted ankle when stepping off a curb This initial assessment/diagnostic orders/clinical plan/treatment(s) is/are subject to change based on patients health status, clinical progression and re- assessment by fellow clinical providers in the ED. Further treatment and workup at subsequent clinical providers discretion. Patient/guardian urged not to elope from the ED as their condition may be serious if not clinically assessed and managed. Initial orders include: XR
--- NOTE | 2019-03-27 14:43 | XRay Report ---
LEFT ANKLE 3 VIEW(S) INDICATION / CLINICAL INFORMATION: lateral pain after injury COMPARISON: None available. FINDINGS: BONES / JOINT(S): No acute fracture or subluxation. No significant arthritis. SOFT TISSUES: No significant abnormality. Signer Name: Fermín Heredia MD Signed: 03/27/2019 2:39 PM Workstation Name: [id number]
--- NOTE | 2019-03-27 15:11 | Emergency Department Report ---
ED Lower Extremity HPI - General Chief Complaint: Extremity Injury, Lower Stated Complaint: LEFT FOOT PAIN Time Seen by Provider: 03/27/19 12:54 Source: patient Mode of arrival: Ambulatory Limitations: No Limitations - History of Present Illness Initial Comments: The patient is a pleasant 23-year-old female who is not known to this provider previously. She reports that she is not . She presents to the ER after accidental inversion injury of her ankle yesterday. She reports that she accidentally stepped the wrong way, and inverted her ankle. She is using an Aircast from her mother, which is basically relieved her symptoms. She states that she is pain-free at this time. When the patient has pain, it is primarily on the left posterior aspect of the lateral malleolus, and does not radiate anywhere. She denies plantar foot pain, denies numbness and weakness, and declines pain medication at this time. She states that she feels "fine." She denies other injuries. She denies other complaints. MD Complaint: ankle injury -: Sudden, days(s) (1) Injury: Ankle: Left Type of Injury: inversion Place: street/outdoors Improves With: immobilization, rest Worsens With: weight bearing, movement, palpation Context: other Treatments Prior to Arrival: splint (Aircast) - Related Data Previous Rx's Medication Instructions Recorded Last Taken Type Naproxen 500 mg PO Q8H PRN #12 tablet 08/14/17 Unknown Rx Ondansetron [Zofran Odt] 4 mg PO Q8H PRN #12 tab.rapdis 08/14/17 Unknown Rx cephALEXin [Keflex] 500 mg PO Q12HR 7 Days #14 cap 08/14/17 Unknown Rx Nystas/Diphen/Xyl Visc/Mylanta 15 ml MM Q6H PRN 5 Days ml 05/08/18 Unknown Rx [Magic Mouthwash] HYDROcodone/APAP 5-325 [[place] 1 each PO Q6HR PRN #12 tablet 10/12/18 Unknown Rx 5/325] Ondansetron [Zofran Odt] 4 mg PO Q4HR PRN #20 tab.rapdis 10/12/18 Unknown Rx Ibuprofen [Motrin 600 MG tab] 600 mg PO Q8H PRN #20 tablet 01/15/19 Unknown Rx Allergies Allergy/AdvReac Type Severity Reaction Status Date / Time No Known Allergies Allergy Unverified 04/09/15 21:18 ED Review of Systems ROS: Stated complaint: LEFT FOOT PAIN Other details as noted in HPI Comment: see hpi Musculoskeletal: arthralgia ED Past Medical Hx - Past Medical History Previous Medical History?: Yes Additional medical history: scoliosis. Dysmenorrhea - Surgical History Past Surgical History?: No - Social History Smoking Status: Never Smoker Substance Use Type: Marijuana - Medications Home Medications: Home Medications Medication Instructions Recorded Confirmed Last Taken Type Naproxen 500 mg PO Q8H PRN #12 tablet 08/14/17 Unknown Rx Ondansetron [Zofran Odt] 4 mg PO Q8H PRN #12 tab.rapdis 08/14/17 Unknown Rx cephALEXin [Keflex] 500 mg PO Q12HR 7 Days #14 cap 08/14/17 Unknown Rx Nystas/Diphen/Xyl Visc/Mylanta 15 ml MM Q6H PRN 5 Days ml 05/08/18 Unknown Rx [Magic Mouthwash] HYDROcodone/APAP 5-325 [[place] 1 each PO Q6HR PRN #12 tablet 10/12/18 Unknown Rx 5/325] Ondansetron [Zofran Odt] 4 mg PO Q4HR PRN #20 tab.rapdis 10/12/18 Unknown Rx Ibuprofen [Motrin 600 MG tab] 600 mg PO Q8H PRN #20 tablet 01/15/19 Unknown Rx ED Physical Exam - General Limitations: No Limitations General appearance: alert, in no apparent distress - Head Head exam: Present: atraumatic, normocephalic - Eye Eye exam: Present: normal appearance, EOMI. Absent: nystagmus - ENT ENT exam: Present: normal exam, normal orophraynx, mucous membranes moist, normal external ear exam - Neck Neck exam: Present: normal inspection, full ROM. Absent: tenderness, meningismus - Respiratory Respiratory exam: Present: normal lung sounds bilaterally. Absent: respiratory distress - Cardiovascular Cardiovascular Exam: Present: regular rate, normal rhythm, normal heart sounds. Absent: bradycardia, tachycardia, irregular rhythm, systolic murmur, diastolic murmur, rubs, gallop - GI/Abdominal GI/Abdominal exam: Present: soft. Absent: distended, tenderness, guarding, rebound, pulsatile mass - Extremities Exam Extremities exam: Present: normal inspection (dorsi and plantar flexion are intact in the bilateral lower extremities. There is no Achilles tendon tenderness. Garcia test is intact and functional in the left lower extremity.), full ROM, other (2+ pulses noted in the bilateral upper and lower extremities. The pelvis is stable. There is no long bony tenderness. The muscular compartments are soft. There is no redness, pus, streaking or erythema.). Absent: tenderness, pedal edema, joint swelling, calf tenderness - Back Exam Back exam: Present: normal inspection, full ROM. Absent: tenderness, CVA tenderness (R), CVA tenderness (L), paraspinal tenderness, vertebral tenderness - Neurological Exam Neurological exam: Present: alert, normal gait, other (there is no facial droop. The tongue is midline. Extraocular movements are intact bilaterally. Speaking in full sentences. Hearing is grossly intact. 5 out of 5 strength bilateral upper and lower extremities. Sensation is intact to light touch bilateral upper and lower extremities.). Absent: motor sensory deficit - Psychiatric Psychiatric exam: Present: normal affect, normal mood - Skin Skin exam: Present: warm, dry, intact, normal color. Absent: rash ED Course Vital Signs 03/27/19 12:54 Temperature 98.9 F Pulse Rate 71 Respiratory 16 Rate Blood Pressure 113/65 O2 Sat by Pulse 97 Oximetry ED Lower Extremity MDM - Lab Data Vital Signs 03/27/19 12:54 Temperature 98.9 F Pulse Rate 71 Respiratory 16 Rate Blood Pressure 113/65 O2 Sat by Pulse 97 Oximetry - Radiology Data Radiology results: report reviewed, image reviewed Fluoro Time In Minutes: LEFT ANKLE 3 VIEW(S) INDICATION / CLINICAL INFORMATION: lateral pain after injury COMPARISON: None available. FINDINGS: BONES / JOINT(S): No acute fracture or subluxation. No significant arthritis. SOFT TISSUES: No significant abnormality. Signer Name: Fermín Heredia MD Signed: 03/27/2019 2:39 PM Workstation Name: [id number] Transcribed By: ARNALDO Dictated By: Fermín Heredia MD Electronically Authenticated By: Fermín Heredia MD Signed Date/Time: 03/27/19 1439 DD/ 1438 - Medical Decision Making Differential diagnosis, including but not limited to: Sprain, strain, fracture, dislocation Assessment and plan: 23-year-old female status post subacute inversion injury to left leg, sustained yesterday, without additional injuries, without any evidence of fracture, dislocation or neurovascular deficits. She declines pain medication at this time. She is afebrile with reassuring vital signs. Patient does not have an emergent medical condition at this time. Tylenol, Motrin, alternating, weightbearing as tolerated, physical activities as tolerated. Di scussed with the patient who verbalized understanding. Return precautions are reviewed. Critical care attestation.: If time is entered above; I have spent that time in minutes in the direct care of this critically ill patient, excluding procedure time. ED Disposition Clinical Impression: Left ankle sprain Qualifiers: Encounter type: initial encounter Involved ligament of ankle: unspecified ligament Qualified Code(s): S93.402A - Sprain of unspecified ligament of left ankle, initial encounter Disposition: TO HOME OR SELFCARE Is pt being admited?: No Does the pt Need Aspirin: No Condition: Stable Instructions: Ankle Sprain (ED) Additional Instructions: Continue to use the Aircast as needed for symptom and pain control. Weightbearing as tolerated. Avoid strenuous physical activities. Follow up with the primary care doctor or orthopedist or sports medicine doctor within the next 2 weeks. Patient may take Tylenol [id number], 650 mg every 4-6 hours as needed for pain, alternating with Motrin, 600 mg by mouth every 6 hours, as needed for pain. Return to the emergency room right away with new, worsening or different symptoms, or symptoms not present on the initial emergency room evaluation. Referrals: [facility] [Provider Group] - as needed [facility] [Provider Group] - as needed
== END 2019-03-27 15:26 | disposition home or self-care (01) ==
LOC: ED 12:49
DX: S93.402A Sprain of unspecified ligament of left ankle, initial encounter (principal); M41.9 Scoliosis, unspecified; F12.10 Cannabis abuse, uncomplicated; Z79.899 Other long term (current) drug therapy; X50.0XXA Overexertion from strenuous movement or load, initial encounter; Y93.89 Activity, other specified; Y92.89 Other specified places as the place of occurrence of the external cause; Y99.8 Other external cause status
CPT/HCPCS: 99283

== ENCOUNTER 2020-10-17 08:12 | Emergency (ER) | payer SELFPAY ==
[2020-10-17 08:21] VITALS: BP 115/84
[2020-10-17 08:37] LABS: Basophils % (Auto) 0.3 % (0.0-1.8); Eosinophils # (Auto) 0.1 K/mm3 (0.0-0.4); Eosinophils % (Auto) 0.7 % (0.0-4.3); Hematocrit 39.6 % (30.3-42.9); Hemoglobin 12.9 gm/dl (10.1-14.3); Lymphocytes # (Auto) 1.2 K/mm3 (1.2-5.4); Lymphocytes % (Auto) 15.4 % (13.4-35.0); Mean Corpuscular HGB Conc 33 % (30-34); Mean Corpuscular Volume 89 fl (79-97); Monocytes # (Auto) 0.5 K/mm3 (0.0-0.8); Monocytes % (Auto) 6.1 % (0.0-7.3); Platelet Count 256 K/mm3 (140-440); Red Blood Count 4.46 M/mm3 (3.65-5.03); Red Cell Distribution Width 16.4 % (13.2-15.2)
[2020-10-17 08:59] LABS: Alanine Aminotransferase 8 units/L (7-56); Albumin 4.5 g/dL (3.9-5); Blood Urea Nitrogen 11 mg/dL (7-17); Calcium 9.5 mg/dL (8.4-10.2); Hemolysis Index 7
[2020-10-17 09:04] LABS: BUN/Creatinine Ratio 16
[2020-10-17 10:52] LABS: Bilirubin,Urine NEG (Negative); Blood,Urine LG (Negative); Color,Urine Yellow (Yellow); Mucus,Urine 2+ /HPF
[2020-10-17 10:54] LABS: RBC,Urine > 182.0 /HPF (0.0-6.0)
[2020-10-17 10:56] LABS: WBC,Urine < 1.0 /HPF (0.0-6.0)
--- NOTE | 2020-10-17 10:56 | Emergency Department Report ---
ED Abdominal Pain HPI - General Chief Complaint: Abdominal Pain Stated Complaint: ABD PAINS Time Seen by Provider: 10/17/20 10:28 Source: patient Mode of arrival: Ambulatory Limitations: No Limitations - History of Present Illness Initial Comments: 24-year-old -[place] female presents to the emergency room stating that she has terrible menstrual cramps that started at 430 this morning. Patient reports she has some nausea and vomiting. She reports that her cycle came on yesterday 10/16/2020. Patient reports she has not taken anything for discomfort. She does admit that she smokes marijuana daily and drinks alcohol socially. She does have a primary care provider. She is 0. History of dysmenorrhea and scoliosis. Patient denies any fever no chills. MD Complaint: abdominal pain -: This morning Location: suprapubic Severity scale (0 -10): 7 Quality: cramping Consistency: intermittent Improves With: nothing Worsens With: nothing Context: other (Menstrual cramps) Associated Symptoms: nausea, vomiting - Related Data LMP Date: 10/16/20 Previous Rx's Medication Instructions Recorded Last Taken Type Naproxen 500 mg PO Q8H PRN #12 tablet 08/14/17 Unknown Rx Ondansetron [Zofran Odt] 4 mg PO Q8H PRN #12 tab.rapdis 08/14/17 Unknown Rx cephALEXin [Keflex] 500 mg PO Q12HR 7 Days #14 cap 08/14/17 Unknown Rx Nystas/Diphen/Xyl Visc/Mylanta 15 ml MM Q6H PRN 5 Days ml 05/08/18 Unknown Rx [Magic Mouthwash] HYDROcodone/APAP 5-325 [[place] 1 each PO Q6HR PRN #12 tablet 10/12/18 Unknown Rx 5/325] Ondansetron [Zofran Odt] 4 mg PO Q4HR PRN #20 tab.rapdis 10/12/18 Unknown Rx Ibuprofen [Motrin 600 MG tab] 600 mg PO Q8H PRN #20 tablet 01/15/19 Unknown Rx Ondansetron [Zofran Odt] 4 mg PO Q8HR PRN #15 tab.rapdis 12/08/19 Unknown Rx Prednisone [predniSONE 10 mg 10 mg PO .TAPER #1 tab.ds.pk 09/16/20 Unknown Rx (6-Day Pack, 21 Tabs)] Ondansetron [Zofran ODT TAB] 4 mg PO Q6H PRN #15 tab.rapdis 10/17/20 Unknown Rx Allergies Allergy/AdvReac Type Severity Reaction Status Date / Time No Known Allergies Allergy Verified 12/08/19 08:25 ED Review of Systems ROS: Stated complaint: ABD PAINS Other details as noted in HPI Comment: All other systems reviewed and negative ED Past Medical Hx - Past Medical History Previous Medical History?: No Additional medical history: scoliosis. Dysmenorrhea - Surgical History Past Surgical History?: No - Social History Smoking Status: Never Smoker Substance Use Type: Marijuana - Medications Home Medications: Home Medications Medication Instructions Recorded Confirmed Last Taken Type Naproxen 500 mg PO Q8H PRN #12 tablet 08/14/17 Unknown Rx Ondansetron [Zofran Odt] 4 mg PO Q8H PRN #12 tab.rapdis 08/14/17 Unknown Rx cephALEXin [Keflex] 500 mg PO Q12HR 7 Days #14 cap 08/14/17 Unknown Rx Nystas/Diphen/Xyl Visc/Mylanta 15 ml MM Q6H PRN 5 Days ml 05/08/18 Unknown Rx [Magic Mouthwash] HYDROcodone/APAP 5-325 [[place] 1 each PO Q6HR PRN #12 tablet 10/12/18 Unknown Rx 5/325] Ondansetron [Zofran Odt] 4 mg PO Q4HR PRN #20 tab.rapdis 10/12/18 Unknown Rx Ibuprofen [Motrin 600 MG tab] 600 mg PO Q8H PRN #20 tablet 01/15/19 Unknown Rx Ondansetron [Zofran Odt] 4 mg PO Q8HR PRN #15 tab.rapdis 12/08/19 Unknown Rx Prednisone [predniSONE 10 mg 10 mg PO .TAPER #1 tab.ds.pk 12/08/19 Unknown Rx (6-Day Pack, 21 Tabs)] Ondansetron [Zofran ODT TAB] 4 mg PO Q6H PRN #15 tab.rapdis 10/17/20 Unknown Rx ED Physical Exam - General Limitations: No Limitations General appearance: alert, in no apparent distress - Head Head exam: Present: atraumatic, normocephalic - Eye Eye exam: Present: normal appearance - ENT ENT exam: Present: mucous membranes moist - Neck Neck exam: Present: normal inspection - Respiratory Respiratory exam: Present: normal lung sounds bilaterally. Absent: chest wall tenderness, accessory muscle use - Cardiovascular Cardiovascular Exam: Present: regular rate - GI/Abdominal GI/Abdominal exam: Present: soft, tenderness (Suprapubic). Absent: distended, guarding - Extremities Exam Extremities exam: Present: normal inspection, full ROM - Back Exam Back exam: Present: normal inspection, full ROM - Neurological Exam Neurological exam: Present: alert, oriented X3, normal gait - Psychiatric Psychiatric exam: Present: normal affect, normal mood - Skin Skin exam: Present: warm, dry, intact, normal color. Absent: rash ED Course Vital Signs 10/17/20 08:20 Temperature 98.3 F Pulse Rate 67 Respiratory 18 Rate Blood Pressure 115/84 O2 Sat by Pulse 98 Oximetry ED Medical Decision Making - Lab Data Result diagrams: 10/17/20 08:27 10/17/20 08:27 - Medical Decision Making 24-year-old -[place] female presents to the emergency room stating that she has terrible menstrual cramps that started at 430 this morning. Patient reports she has some nausea and vomiting. She reports that her cycle came on yesterday 10/16/2020. Patient reports she has not taken anything for discomfort. She does admit that she smokes marijuana daily and drinks alcohol socially. She does have a primary care provider. She is 0. History of dysmenorrhea and scoliosis. Patient denies any fever no chills. Patient be given Zofran p.o. challenge. Labs are all stable. Critical care attestation.: If time is entered above; I have spent that time in minutes in the direct care of this critically ill patient, excluding procedure time. ED Disposition Clinical Impression: Dysmenorrhea, Nausea and vomiting Disposition: -01 TO HOME OR SELFCARE Is pt being admited?: No Does the pt Need Aspirin: No Condition: Stable Instructions: Cannabinoid Hyperemesis Syndrome, Dysmenorrhea, [id number], Abdominal Pain (ED) Additional Instructions: All labs are within normal limits. I recommend ibuprofen. Stop smoking marijuana as this can be a cause of your nausea and vomiting. Follow-up with a newspaper journalist. I have listed 1 below for your convenience. Prescriptions: Ondansetron [Zofran ODT TAB] 4 mg PO Q6H PRN #15 tab.rapdis PRN Reason: Nausea And Vomiting Referrals: [facility] [Other] - 3-5 Days [facility] [Provider Group] - 3-5 Days Forms: Work/School Release Form(ED)
[2020-10-17] MEDS ORDERED: ONDANSETRON 4 MG ODT TAB PO ONE (11:00)
== END 2020-10-17 14:27 | disposition home or self-care (01) ==
LOC: ED 08:12
DX: N94.6 Dysmenorrhea, unspecified (principal); R11.2 Nausea with vomiting, unspecified; F12.90 Cannabis use, unspecified, uncomplicated; Z79.899 Other long term (current) drug therapy
CPT/HCPCS: 36415; 80053; 81001; 85025; Q0162